=== PATIENT | male | born 1990 | race African-American/Black ===

== ENCOUNTER 2021-12-30 09:46 | Emergency (ER) | payer OTHER | END 2021-12-30 11:05 | disposition home or self-care (01) | LOC: ERS 09:46 | DX: Z77.098 Contact with and (suspected) exposure to other hazardous, chiefly nonmedicinal, chemicals (principal); S61.211D Laceration without foreign body of left index finger without damage to nail, subsequent encounter; W45.8XXD Other foreign body or object entering through skin, subsequent encounter | CPT/HCPCS: 99282 ==

== ENCOUNTER 2022-01-18 20:43 | Emergency (ER) | payer SELFPAY ==
[2022-01-18] MEDS ORDERED: Ketorolac Tromethamine 30 MG/ML VIAL ONE (21:13)
== END 2022-01-18 21:48 | disposition home or self-care (01) ==
LOC: ERS 20:43
DX: K02.9 Dental caries, unspecified (principal)
CPT/HCPCS: 96372; 99282; J1885

== ENCOUNTER 2022-02-21 20:20 | Emergency (ER) | payer SELFPAY ==
[~2022-02-21 20:20] MED LIST: Iopamidol-370 76% 500 ML 1 ML ONE
[2022-02-21] MEDS ORDERED: Ondansetron PF 4 MG/2 ML Vial ONE (21:25)
[2022-02-21 21:50] LABS: Mean Corpuscular HGB CONC 31.7 g/dL (32.0-36.0)
[2022-02-21 22:05] LABS: ALT (SGPT) 14 U/L (8-55); AST (SGOT) 16 U/L (5-34); Albumin 4.4 g/dL (3.5-5.0); Alkaline Phosphatase 64 U/L (40-110); Anion Gap 13 mmol/L (10-20); BUN (Urea Nitrogen) 17 mg/dL (8.9-20.6); Bilirubin, Total 0.4 mg/dL (0.2-1.2); Calc. Creatinine Clearance 0 mL/min (70-130); Calcium 10.3 mg/dL (7.8-10.44); Carbon Dioxide 27 mmol/L (22-29); Chloride 104 mmol/L (98-107); Estimated GFR 96; Globulin 3.3 g/dL (2.4-3.5); Glucose 92 mg/dL (70-105); Lipase 39 U/L (8-78); Potassium 3.8 mmol/L (3.5-5.1); Protein, Total 7.7 g/dL (6.0-8.3); Sodium 140 mmol/L (136-145)
[2022-02-21 22:06] LABS: Hemoglobin 15.2 g/dL (14.0-18.0); Mean Corpuscular Hemoglobin 28.7 pg (27.0-31.0); Mean Corpuscular Volume 90.6 fL (78.0-98.0); Mean Platelet Volume 8.5 fL (7.4-10.4); Platelet Count 210 thou/uL (130-400); RBC Distribution Width 12.7 % (11.5-14.5); Red Blood Cell (RBC) Count 5.28 mill/uL (4.70-6.10)
[2022-02-21 22:11] LABS: Bacteria/HPF None Seen HPF (None Seen); Bilirubin Negative (Negative); Blood, Urine Trace (Negative); Clarity Clear (Clear); Glucose, Urine (Dipstick) Normal (Negative); Ketone, Urine Negative (Negative); Leukocyte Negative Leu/uL (Negative); Nitrite Negative (Negative); Protein, Urine (Dipstick) Negative (Neg-Trace); RBC/HPF None Seen HPF (0-3); Squamous Epithelial None Seen HPF (0-3); Urobilinogen Normal mg/dL (Less than 2); WBC/HPF 0-3 HPF (0-3); pH, Urine 5.5 (5.0-9.0)
[2022-02-21 22:12] LABS: Eosinophils 1 % (0-10); Hypochromia SLIGHT = 6-15 cells (100X) (0-5/hpf); Lymphocytes 56 % (21-51); MDiff Complete? YES; Monocytes 7 % (0-10); Neutrophil 36 % (42-75); Platelet Morphology Comment Appears Adequate; Polychromasia SLIGHT = 2-3 cells (100X) (0-2/hpf)
== END 2022-02-22 00:01 | disposition home or self-care (01) ==
LOC: ERS 20:20
DX: R11.2 Nausea with vomiting, unspecified (principal); R19.7 Diarrhea, unspecified; Z20.822 Contact with and (suspected) exposure to COVID-19
CPT/HCPCS: 74177; 80053; 81003; 81015; 83690; 85025; 96361; 96374; J2405; Q9967; U0003; U0005

== ENCOUNTER 2022-04-19 11:21 | Emergency (ER) | payer SELFPAY | END 2022-04-19 12:40 | disposition home or self-care (01) | LOC: ERS 11:21 | DX: M79.641 Pain in right hand (principal); M79.645 Pain in left finger(s) ==

== ENCOUNTER 2022-08-31 09:09 | Emergency (ER) | payer SELFPAY ==
[2022-08-31] MEDS ORDERED: Ketorolac Tromethamine 30 MG/ML VIAL ONE (09:49)
[2022-08-31 10:43] LABS: SARS-CoV-2 NAA Rapid Test Not Detected (NotDetected)
== END 2022-08-31 11:56 | disposition home or self-care (01) ==
LOC: ERS 09:09
DX: B34.9 Viral infection, unspecified (principal); Z20.822 Contact with and (suspected) exposure to COVID-19
CPT/HCPCS: 96372; 99283; J1885

== ENCOUNTER 2022-10-18 08:03 | Emergency (ER) | payer SELFPAY ==
[2022-10-18] MEDS ORDERED: Metoclopramide HCl 10 MG TAB ONE (08:24)
[2022-10-18] MEDS ORDERED: Ketorolac Tromethamine 30 MG/ML VIAL ONE (08:24)
== END 2022-10-18 09:41 | disposition home or self-care (01) ==
LOC: ERS 08:03
DX: R51.9 Headache, unspecified (principal); F17.210 Nicotine dependence, cigarettes, uncomplicated
CPT/HCPCS: 96372; 99283; J1885

== ENCOUNTER 2023-10-16 11:13 | Emergency (ER) | payer SELFPAY ==
[2023-10-16] MEDS ORDERED: Ketorolac Tromethamine 30 MG (1 mL) VIAL ONE (11:48)
[2023-10-16] MEDS ORDERED: Acetaminophen 500 MG TAB ONE (11:48)
[2023-10-16] MEDS ORDERED: Metoclopramide HCl 10 MG (2 mL) VIAL ONE (11:51)
[2023-10-16] MEDS ORDERED: diphenhydrAMINE 50 MG/ML VIAL ONE (11:51)
[2023-10-16 12:14] LABS: #Basophils 0.04 10x3/uL (0.0-0.2); %Basophils 0.8 % (0.0-1.0); %Eosinophils 3.2 % (0.0-10.0); %Lymphocytes 49.1 % (21.0-51.0); %Monocytes 7.5 % (0.0-10.0); %Neutrophils 39.2 % (42.0-75.0); Hematocrit 39.8 % (42.0-52.0); Hemoglobin 13.1 g/dL (14.0-18.0); Mean Corpuscular HGB CONC 32.9 g/dL (32.0-36.0); Mean Corpuscular Hemoglobin 28.9 pg (27.0-31.0); Mean Corpuscular Volume 87.9 fL (78.0-98.0); Mean Platelet Volume 10.8 fL (7.4-10.4); Platelet Count 201 10x3/uL (130-400); RBC Distribution Width 14.2 % (11.5-14.5); Red Blood Cell (RBC) Count 4.53 mill/uL (4.70-6.10)
[2023-10-16 12:44] LABS: ALT (SGPT) 27 U/L (8-55); AST (SGOT) 27 U/L (5-34); Albumin 3.7 g/dL (3.5-5.0); Alkaline Phosphatase 52 U/L (40-110); Anion Gap 13 mmol/L (10-20); BUN (Urea Nitrogen) 14 mg/dL (8.9-20.6); Bilirubin, Total 0.3 mg/dL (0.2-1.2); Calc. Creatinine Clearance 0 mL/min (70-130); Calcium 9.5 mg/dL (7.8-10.44); Carbon Dioxide 23 mmol/L (22-29); Chloride 110 mmol/L (98-107); Estimated GFR 119; Globulin 3.4 g/dL (2.4-3.5); Glucose 100 mg/dL (70-105); Potassium 4.4 mmol/L (3.5-5.1); Protein, Total 7.1 g/dL (6.0-8.3); Sodium 142 mmol/L (136-145)
== END 2023-10-16 14:00 | disposition home or self-care (01) ==
LOC: ERS 11:13
DX: R51.9 Headache, unspecified (principal); R19.7 Diarrhea, unspecified; R11.2 Nausea with vomiting, unspecified; F17.210 Nicotine dependence, cigarettes, uncomplicated; F17.290 Nicotine dependence, other tobacco product, uncomplicated
CPT/HCPCS: 70450; 80053; 85025; 96365; 96366; 96375; J1200; J1885; J2765

== ENCOUNTER 2024-03-01 07:50 | Emergency (ER) | payer SELFPAY ==
[2024-03-01 09:47] LABS: #Basophils 0.03 10x3/uL (0.0-0.2); %Basophils 0.4 % (0.0-1.0); %Eosinophils 4.3 % (0.0-10.0); %Lymphocytes 44.4 % (21.0-51.0); %Monocytes 7.2 % (0.0-10.0); %Neutrophils 43.3 % (42.0-75.0); Hematocrit 42.2 % (42.0-52.0); Hemoglobin 13.9 g/dL (14.0-18.0); Mean Corpuscular HGB CONC 32.9 g/dL (32.0-36.0); Mean Corpuscular Hemoglobin 28.7 pg (27.0-31.0); Mean Corpuscular Volume 87.2 fL (78.0-98.0); Mean Platelet Volume 10.3 fL (7.4-10.4); Platelet Count 285 10x3/uL (130-400); RBC Distribution Width 12.7 % (11.5-14.5); Red Blood Cell (RBC) Count 4.84 mill/uL (4.70-6.10)
[2024-03-01] MEDS ORDERED: Ketorolac Tromethamine 30 MG (1 mL) VIAL ONE (10:01)
[2024-03-01] MEDS ORDERED: Ondansetron PF 4 MG/2 ML Vial ONE (10:01)
[2024-03-01] MEDS ORDERED: Morphine 4 MG/ML VIAL ONE ×2 (10:01→12:53)
[2024-03-01 10:06] LABS: ALT (SGPT) 32 U/L (8-55); AST (SGOT) 25 U/L (5-34); Albumin 3.6 g/dL (3.5-5.0); Alkaline Phosphatase 77 U/L (40-110); Anion Gap 14 mmol/L (10-20); BUN (Urea Nitrogen) 17 mg/dL (8.9-20.6); Bilirubin, Total 0.2 mg/dL (0.2-1.2); Calc. Creatinine Clearance 0 mL/min (70-130); Calcium 9.9 mg/dL (7.8-10.44); Carbon Dioxide 23 mmol/L (22-29); Chloride 108 mmol/L (98-107); Estimated GFR 106; Globulin 4.2 g/dL (2.4-3.5); Glucose 93 mg/dL (70-105); Potassium 4.1 mmol/L (3.5-5.1); Protein, Total 7.8 g/dL (6.0-8.3); Sodium 141 mmol/L (136-145)
[2024-03-01] MEDS ORDERED: Iopamidol-370 76% 500 ML MDV (1 ML CHARGE) ONE (13:58)
== END 2024-03-01 13:14 | disposition home or self-care (01) ==
LOC: ERS 07:50
DX: L03.115 Cellulitis of right lower limb (principal)
CPT/HCPCS: 36415; 80053; 83605; 85025; 87040; 96374; 96375; 96376; J1885; J2272; J2405; Q9967

== ENCOUNTER 2024-03-28 14:30 | Emergency (ER) | payer SELFPAY, OTHER ==
[2024-03-28 15:14] LABS: #Basophils 0.03 10x3/uL (0.0-0.2); %Basophils 0.4 % (0.0-1.0); %Eosinophils 2.7 % (0.0-10.0); %Lymphocytes 45.2 % (21.0-51.0); %Monocytes 9.1 % (0.0-10.0); %Neutrophils 42.2 % (42.0-75.0); Hematocrit 45.4 % (42.0-52.0); Hemoglobin 14.4 g/dL (14.0-18.0); Mean Corpuscular HGB CONC 31.7 g/dL (32.0-36.0); Mean Corpuscular Hemoglobin 28.1 pg (27.0-31.0); Mean Corpuscular Volume 88.7 fL (78.0-98.0); Mean Platelet Volume 11.1 fL (7.4-10.4); Platelet Count 217 10x3/uL (130-400); RBC Distribution Width 14.2 % (11.5-14.5); Red Blood Cell (RBC) Count 5.12 mill/uL (4.70-6.10)
[2024-03-28 15:33] LABS: ALT (SGPT) 36 U/L (8-55); AST (SGOT) 26 U/L (5-34); Albumin 4.1 g/dL (3.5-5.0); Alkaline Phosphatase 65 U/L (40-110); Anion Gap 14 mmol/L (10-20); BUN (Urea Nitrogen) 17 mg/dL (8.9-20.6); Bilirubin, Total 0.4 mg/dL (0.2-1.2); Calc. Creatinine Clearance 0 mL/min (70-130); Calcium 9.7 mg/dL (7.8-10.44); Carbon Dioxide 22 mmol/L (22-29); Chloride 106 mmol/L (98-107); Estimated GFR 98; Globulin 3.8 g/dL (2.4-3.5); Glucose 96 mg/dL (70-105); Potassium 4.1 mmol/L (3.5-5.1); Protein, Total 7.9 g/dL (6.0-8.3); Sodium 138 mmol/L (136-145)
[2024-03-28] MEDS ORDERED: Morphine 4 MG/ML VIAL ONE (16:21)
[2024-03-28] MEDS ORDERED: Ondansetron PF 4 MG/2 ML Vial ONE (16:22)
[2024-03-28] MEDS ORDERED: Piperacillin/Tazobactam 4.5 GM VIAL ONE (16:22)
[2024-03-28] MEDS ORDERED: Sodium Chloride 0.9% 100 ML ONE (16:22)
== END 2024-03-28 17:23 | disposition home or self-care (01) ==
LOC: ERS 14:30
DX: S97.81XD Crushing injury of right foot, subsequent encounter (principal); I10 Essential (primary) hypertension; F17.290 Nicotine dependence, other tobacco product, uncomplicated
CPT/HCPCS: 36415; 80053; 83605; 85025; 87040; 96374; 96375; J2272; J2405; J2543